=== PATIENT | female | born 1940 ===

== ENCOUNTER 2022-04-15 14:53 | Inpatient (IN) ==
[2022-04-15 19:54] LABS: Basophils # 0.1 10*3/uL (0.0-0.2); Basophils % 0.8 % (0.0-0.8); Eosinophils # 0.1 10*3/uL (0.0-0.87); Eosinophils % 1.2 % (0.00-10.9); Hematocrit 37.3 VOL% (35.7-47.0); Hemoglobin 11.6 GM/DL (12.0-16.0); Immature Granulocytes % 0.2 %; Immature Granulocytes Absolute 0.02 #; Lymphocytes # 2.8 10*3/uL (1.4-4.0); Lymphocytes % 31.8 % (21.3-54.2); Mean Corpuscular HGB Conc 31.1 GM/DL (32-36); Mean Corpuscular Volume 95.6 FL (87-102); Mean Platelet Volume 10.7 FL (9.6-12.0); Monocytes # 0.8 10*3/uL (0.11-0.8); Monocytes % 8.7 % (1.7-12.7); Neutrophils % 57.3 % (38.7-73.9); Platelet Count 245 T/CUMM (130-400); Red Cell Distribution Width 13.8 % (9.3-17.3); White Blood Count 8.7 T/CUMM (4-12)
[2022-04-15 19:58] LABS: Bilirubin,Urine Negative (Negative); Blood, Urine Negative (Negative); Glucose,Urine (UA) Negative (Negative); Ketones,Urine Negative (Negative); Nitrite,Urine Negative (Negative); Protein,Urine Negative (Negative); RBC,Urine 1 /HPF (0-4); Urine Appearance Clear (Clear); Urine Color Yellow (Yellow); Urine Specific Gravity <= 1.005 (1.001-1.035); Urine Urobilinogen 0.2 eU/dL (<2.0); Urine pH 5.5 (4.5-8.0)
[2022-04-15 20:03] LABS: PT Patient Result 11.1 SECS (10.5-12.0)
[2022-04-15 20:19] LABS: Alanine Aminotransferase 17 U/L (13-56); Albumin 3.8 G/DL (3.4-5.0); Alkaline Phosphatase 86 U/L (45-117); Aspartate Amino Transferase 17 U/L (0-37); Bilirubin,Total < 0.39 MG/DL (0.20-1.00); Blood Urea Nitrogen 25 MG/DL (7-18); Calcium 9.1 MG/DL (8.5-10.1); Carbon Dioxide 26 MMOL/L (21-32); Chloride 106 MMOL/L (98-107); Glucose 76 MG/DL (74-106); Osmolality,Calculated 275.8 MOS/KG (273-304); Sodium 137 MMOL/L (136-145); Total Protein 7.4 G/DL (6.4-8.2)
[2022-04-15] MEDS ORDERED: GLUCAGON 1 MG VIAL IM PRN (20:58)
[2022-04-15] MEDS ORDERED: ACETAMINOPHEN 325 MG TABLET PO PRN (20:58)
[2022-04-15] MEDS ORDERED: SIMETHICONE CHEW 125 MG TABLET PO PRN (20:58)
[2022-04-15] MEDS ORDERED: ONDANSETRON 4 MG/2 ML VIAL IV PRN (20:58)
[2022-04-15] MEDS ORDERED: DEXTROSE 10% 250 ML BAG IV PRN (21:03)
[2022-04-15] MEDS: INSULIN REGULAR 100 UNIT/ML SUBCUT SCH (21:36)
[2022-04-15] MEDS: DOCUSATE SODIUM 100 MG CAPSULE PO SCH (22:43)
[2022-04-15] MEDS: SODIUM CHLORIDE 0.9% 1,000 ML IV SCH (22:43)
[2022-04-15] MEDS: rOPINIRole 1 MG TABLET PO SCH (22:43)
[2022-04-16 05:31] LABS: Basophils # 0.1 10*3/uL (0.0-0.2); Basophils % 1.1 % (0.0-0.8); Eosinophils # 0.1 10*3/uL (0.0-0.87); Eosinophils % 1.8 % (0.00-10.9); Hematocrit 34.6 VOL% (35.7-47.0); Hemoglobin 10.7 GM/DL (12.0-16.0); Immature Granulocytes % 0.2 %; Immature Granulocytes Absolute 0.01 #; Lymphocytes % 36.1 % (21.3-54.2); Mean Corpuscular HGB Conc 30.9 GM/DL (32-36); Mean Corpuscular Volume 95.8 FL (87-102); Monocytes # 0.5 10*3/uL (0.11-0.8); Monocytes % 9.9 % (1.7-12.7); Neutrophils % 50.9 % (38.7-73.9); Platelet Count 194 T/CUMM (130-400); Red Blood Count 3.61 MC/CUMM (3.8-5.5); Red Cell Distribution Width 13.9 % (9.3-17.3); White Blood Count 5.5 T/CUMM (4-12)
[2022-04-16 06:00] LABS: Calcium 8.7 MG/DL (8.5-10.1); Osmolality,Calculated 281.4 MOS/KG (273-304); Potassium 4.5 MMOL/L (3.5-5.1); Thyroid Stimulating Hormone 2.35 uIU/ml (0.358-3.74)
[2022-04-16] MEDS: INSULIN REGULAR 100 UNIT/ML SUBCUT SCH ×4 (07:47→21:52)
[2022-04-16] MEDS: SODIUM CHLORIDE 0.9% 1,000 ML IV SCH (08:41)
[2022-04-16] MEDS: LOSARTAN 50 MG TABLET PO SCH (08:42)
[2022-04-16] MEDS: DOCUSATE SODIUM 100 MG CAPSULE PO SCH ×2 (08:42→21:52)
[2022-04-16] MEDS: CLOPIDOGREL 75 MG TABLET PO SCH (08:43)
[2022-04-16] MEDS: CHOLECALCIFEROL 1,000 UNIT TABLET PO SCH (08:43)
[2022-04-16] MEDS: ASCORBIC ACID 500 MG TABLET PO SCH ×2 (08:44→21:52)
[2022-04-16] MEDS: carvediloL 6.25 MG TABLET PO SCH ×2 (08:44→21:52)
[2022-04-16] MEDS: CALCIUM (CARBONATE) 500 MG TABLET PO SCH ×2 (08:44→16:41)
[2022-04-16] MEDS: PANTOPRAZOLE 40 MG TABLET PO SCH (08:44)
[2022-04-16] MEDS: TERBINAFINE 250 MG TABLET PO SCH (08:45)
[2022-04-16] MEDS ORDERED: NON-FORMULARY MEDICATION (Lysine Hcl 500 MG tablet) PO SCH (09:00)
[2022-04-16] MEDS ORDERED: SULFAMETHOX/TRIMETHOPRIM 800-160 MG TABLET PO SCH (09:00)
[2022-04-16] MEDS ORDERED: rOPINIRole 1 MG TABLET PO SCH (09:00)
[2022-04-16] MEDS: PIOGLITAZONE 15 MG TABLET PO SCH (12:17)
[2022-04-16] MEDS ORDERED: SIMVASTATIN 10 MG TABLET PO SCH (21:00)
[2022-04-16] MEDS ORDERED: LATANOPROST 0.005% OPH SOLN 2.5 ML BOTTLE BOTH EYES SCH (21:00)
[2022-04-16] MEDS ORDERED: GABAPENTIN 300 MG CAPSULE PO SCH (21:00)
[2022-04-16] MEDS: rOPINIRole 1 MG TABLET PO SCH (21:52)
[2022-04-17 06:24] LABS: Basophils # 0.1 10*3/uL (0.0-0.2); Basophils % 1.2 % (0.0-0.8); Eosinophils # 0.1 10*3/uL (0.0-0.87); Hematocrit 33.6 VOL% (35.7-47.0); Hemoglobin 10.2 GM/DL (12.0-16.0); Immature Granulocytes % 0.2 %; Immature Granulocytes Absolute 0.01 #; Lymphocytes % 46.5 % (21.3-54.2); Mean Corpuscular HGB Conc 30.4 GM/DL (32-36); Mean Platelet Volume 11.4 FL (9.6-12.0); Monocytes # 0.4 10*3/uL (0.11-0.8); Neutrophils % 39.1 % (38.7-73.9); Platelet Count 200 T/CUMM (130-400); Red Cell Distribution Width 13.8 % (9.3-17.3); White Blood Count 4.3 T/CUMM (4-12)
[2022-04-17 06:42] LABS: Calcium 8.6 MG/DL (8.5-10.1); Osmolality,Calculated 281.4 MOS/KG (273-304)
[2022-04-17] MEDS: INSULIN REGULAR 100 UNIT/ML SUBCUT SCH ×2 (07:49→12:22)
[2022-04-17] MEDS ORDERED: carvediloL 6.25 MG TABLET PO SCH (08:00)
[2022-04-17] MEDS: CHOLECALCIFEROL 1,000 UNIT TABLET PO SCH (08:46)
[2022-04-17] MEDS: DOCUSATE SODIUM 100 MG CAPSULE PO SCH (08:46)
[2022-04-17] MEDS: TERBINAFINE 250 MG TABLET PO SCH (08:46)
[2022-04-17] MEDS: PANTOPRAZOLE 40 MG TABLET PO SCH (08:47)
[2022-04-17] MEDS: ASCORBIC ACID 500 MG TABLET PO SCH (08:47)
[2022-04-17] MEDS: PIOGLITAZONE 15 MG TABLET PO SCH (08:47)
[2022-04-17] MEDS: CALCIUM (CARBONATE) 500 MG TABLET PO SCH (08:47)
[2022-04-17] MEDS: CLOPIDOGREL 75 MG TABLET PO SCH (08:47)
[2022-04-17] MEDS: LOSARTAN 50 MG TABLET PO SCH (10:33)
[2022-04-17 11:39] VITALS: BP 118/56
== END 2022-04-17 12:20 | disposition home or self-care (01) | DRG 641 ==
LOC: N.EDINP 14:53 → N.ED 14:53 → N.3E 21:40 → SUATTDRO 04-16 11:14
PROVIDERS: ADMIT Internal Medicine; ATTEND Internal Medicine